=== PATIENT | male | born 1970 | race American Indian/Alaskan Native ===

== ENCOUNTER 2017-12-17 01:33 | Emergency (ER) | payer SELFPAY ==
[2017-12-17 01:39] VITALS: BP 150/98
[2017-12-17] MEDS ORDERED: ROCEPHIN IM ONE (06:01)
[2017-12-17] MEDS ORDERED: ZITHROMAX PO ONE (06:01)
[2017-12-17] MEDS ORDERED: XYLOCAINE 1% MPF 5 mL INFILTRATI ONE (06:01)
--- NOTE | 2017-12-17 06:04 | Emergency Department Report ---
ED Male HPI - General Chief complaint: Urogenital-Male Stated complaint: POSSIBLE STD Time Seen by Provider: 12/17/17 05:53 Source: patient Mode of arrival: Ambulatory Limitations: No Limitations - History of Present Illness Initial comments: 47-year-old male past medical history none presents for complaint of penile discharge and dysuria. Patient states that he went to health department and tested positive for chlamydia and was referred to [facility] who then referred him to the emergency department for treatment. Patient denies any nausea vomiting fever chills or testicular pain or swelling. MD Complaint: penile discharge Onset/Timin -: days(s) Location: penis Worsens with: urination - Related Data Previous Rx's Medication Instructions Recorded Last Taken Type Sulfamethoxazole/Trimethoprim 1 each PO BID #6 tablet 04/25/14 Unknown Rx [Bactrim Ds] metroNIDAZOLE [Flagyl] 500 mg PO BID #14 tablet 04/25/14 Unknown Rx Allergies Allergy/AdvReac Type Severity Reaction Status Date / Time No Known Allergies Allergy Verified 12/17/17 02:13 ED Review of Systems ROS: Stated complaint: POSSIBLE STD Other details as noted in HPI Constitutional: denies: chills, fever Eyes: denies: eye pain, eye discharge, vision change ENT: denies: ear pain, throat pain Respiratory: denies: cough, shortness of breath, wheezing Cardiovascular: denies: chest pain, palpitations Endocrine: no symptoms reported Gastrointestinal: denies: abdominal pain, nausea, diarrhea Genitourinary: dysuria, discharge. denies: urgency Musculoskeletal: denies: back pain, joint swelling, arthralgia Skin: denies: rash, lesions Neurological: denies: headache, weakness, paresthesias Psychiatric: denies: anxiety, depression Hematological/Lymphatic: denies: easy bleeding, easy bruising ED Past Medical Hx - Past Medical History Previous Medical History?: No - Surgical History Past Surgical History?: No - Social History Smoking Status: Current Every Day Smoker Substance Use Type: Alcohol - Medications Home Medications: Home Medications Medication Instructions Recorded Confirmed Last Taken Type Sulfamethoxazole/Trimethoprim 1 each PO BID #6 tablet 04/25/14 Unknown Rx [Bactrim Ds] metroNIDAZOLE [Flagyl] 500 mg PO BID #14 tablet 04/25/14 Unknown Rx ED Physical Exam - General Limitations: No Limitations General appearance: alert, in no apparent distress - Head Head exam: Present: atraumatic, normocephalic - Eye Eye exam: Present: normal appearance - ENT ENT exam: Present: mucous membranes moist - Neck Neck exam: Present: normal inspection - Respiratory Respiratory exam: Present: normal lung sounds bilaterally. Absent: respiratory distress - Cardiovascular Cardiovascular Exam: Present: regular rate, normal rhythm. Absent: systolic murmur, diastolic murmur, rubs, gallop - GI/Abdominal GI/Abdominal exam: Present: soft, normal bowel sounds - Rectal Rectal exam: Present: deferred - exam: Present: urethral discharge - Extremities Exam Extremities exam: Present: normal inspection - Back Exam Back exam: Present: normal inspection - Neurological Exam Neurological exam: Present: alert, oriented X3 - Psychiatric Psychiatric exam: Present: normal affect, normal mood - Skin Skin exam: Present: warm, dry, intact, normal color. Absent: rash ED Course Vital Signs 12/17/17 01:33 Temperature 98.4 F Pulse Rate 80 Respiratory 18 Rate Blood Pressure 150/98 O2 Sat by Pulse 95 Oximetry ED Medical Decision Making - Medical Decision Making A/P: Urethritis 1-patient empirically treated with azithromycin and ceftriaxone 2-patient given follow-up with primary care 3- patient is presenting me with positive test result from health Department where he was treated. Positive for chlamydia Critical care attestation.: If time is entered above; I have spent that time in minutes in the direct care of this critically ill patient, excluding procedure time. ED Disposition Clinical Impression: Chlamydia Disposition: DC-01 TO HOME OR SELFCARE Is pt being admited?: No Does the pt Need Aspirin: No Condition: Stable Instructions: Chlamydia Infection (ED), Nonspecific Urethritis in Men (ED) Referrals: [facility] [Provider Group] - 3-5 Days Forms: STI Treatment and Prevention Time of Disposition: 06:04
== END 2017-12-17 06:32 | disposition home or self-care (01) ==
LOC: ED 01:33
DX: A56.01 Chlamydial cystitis and urethritis (principal); F17.200 Nicotine dependence, unspecified, uncomplicated; Z79.899 Other long term (current) drug therapy
CPT/HCPCS: 96372; 99282; J0696